=== PATIENT | female | born 2000 ===

== ENCOUNTER → 2023-03-29 11:51 | Outpatient (CLI) | payer SELFPAY ==
--- NOTE | ~2023-03-29 | US_ITS ---
EXAMINATION: US OB <= 14 weeks fetus DATE: 03/29/2023 12:20 INDICATION: Other specified irregular menstruation. TECHNIQUE: Real-time ultrasound of the pelvis was performed. COMPARISON: None. FINDINGS: There is a single living fetus in breech presentation. The placenta is anterior, 5.4 cm from the cer vix. The cervical length is 2.9 cm on transabdominal images, which is normal. heart rate is 148 beats per minute (bpm). The amniotic fluid volume is subjectively normal. The following biometric data were obtained: Biparietal diameter (BPD): 4.6 cm; head circumference (HC): 17.9 cm; abdominal circumference (AC): 15 .0 cm; femur length (FL): 3.2 cm. These measurements are concordant. Estimated weight is 336 g +/- 50 g. As single measurements, these parameters are each equal to the following estimated gestational ages: BPD: 20 weeks 0 days. HC: 20 weeks 3 days. AC: 20 weeks 2 days. FL: 20 weeks 0 days. estimated gestational age based solely on measurements from this exam is 20 weeks 1 days +/- 1 weeks 3 days. IMPRESSION: 1. Single living fetus in breech presentation. 2. Estimated date of delivery of 08/15/2023. Reviewed, dictated and finalized at location A.
== END ==
PROVIDERS: PCP Physician Assistant; Visit Provider Physician Assistant
DX: Z34.92 Encounter for supervision of normal pregnancy, unspecified, second trimester (principal); Z3A.20 20 weeks gestation of pregnancy
CPT/HCPCS: 76801